=== PATIENT | female | born 1995 | race African-American/Black ===

== ENCOUNTER 2020-10-24 16:40 | Emergency (ER) | payer OTHER ==
[~2020-10-24] VITALS: Ht 160 cm; Wt 68.0 kg
[2020-10-24 18:50] LABS: BASOPHILS % 1.1 % (0.0-2.0); HEMATOCRIT. 40.7 % (36.0-48.0); LYMPHOCYTES % 47.7 % (20.0-50.0); MEAN CORPUSCULAR HEMOGLOBIN 34.4 pg (28.0-32.0); MEAN CORPUSCULAR VOLUME 99.8 fL (81.0-99.0); MEAN PLATELET VOLUME 9.2 fl (7.4-10.4); NEUTROPHILS % 41.2 % (40.0-76.0); PLATELET 178 x1000/uL (130-400); RED BLOOD CELL COUNT 4.08 mill/uL (4.2-5.4); RED CELL DISTRIBUTION WIDTH 13.1 % (11.6-14.6)
[2020-10-24 18:58] LABS: CHLORIDE 107 mEq/L (98-107)
[2020-10-24 19:04] LABS: ETHANOL BLOOD < 10 mg/dL
[2020-10-24 20:41] LABS: CLARITY URINE CLOUDY (CLEAR); COLOR URINE YELLOW (YELLOW); KETONES URINE 2+ (NEGATIVE); LEUKOCYTE ESTERASE URINE 1+ (NEGATIVE); NITRITE URINE NEGATIVE (NEGATIVE); OCCULT BLOOD URINE TRACE (NEGATIVE); PH URINE 6.5 (4.5-8.0); PROTEIN URINE NEGATIVE (NEGATIVE); SPECIFIC GRAVITY URINE 1.023 (1.005-1.030)
[2020-10-24 20:54] LABS: *AMPHETAMINES SCREEN URINE NEGATIVE (NEGATIVE); *BENZODIAZEPINES SCREEN URINE NEGATIVE (NEGATIVE); *COCAINE SCREEN URINE NEGATIVE (NEGATIVE); METHADONE URINE SCREEN NEGATIVE (NEGATIVE); OPIATES URINE SCREEN NEGATIVE (NEGATIVE); PHENCYCLIDINE URINE SCREEN NEGATIVE (NEGATIVE)
[2020-10-24 20:56] LABS: *BARBITURATES SCREEN URINE NEGATIVE (NEGATIVE)
[2020-10-24 20:58] LABS: CANNABINOID URINE SCREEN PRESUMTIVE POSITIVE (NEGATIVE)
[2020-10-24] MEDS ORDERED: ABIL5 MT (21:17)
[2020-10-24] MEDS ORDERED: ARIP2TAB3 MT (21:17)
[2020-10-24] MEDS ORDERED: MIRTAZAPINE 30MG TABLET PO SCH (22:00)
[2020-10-24] MEDS ORDERED: MIRTAZAPINE 15MG TABLET PO SCH (22:00)
[2020-10-24 22:30] VITALS: BP 123/77
== END 2020-10-24 22:30 | disposition home or self-care (01) ==
LOC: ER 16:47
DX: R45.851 Suicidal ideations (principal); J45.909 Unspecified asthma, uncomplicated; Z86.59 Personal history of other mental and behavioral disorders
CPT/HCPCS: 36415; 80053; 80305; 80307; 80320; 80329; 81003; 85025; 99283; G0480

== ENCOUNTER 2024-09-07 03:03 | Emergency (ER) | payer MEDICAID, OTHER ==
[~2024-09-07] VITALS: Ht 165.1 cm; Wt 63.0 kg
[~2024-09-07 03:03] MED LIST: ABIL5 MT; ARIP2TAB3 MT
[2024-09-07 03:05] VITALS: O2SAT 100
[2024-09-07 04:18] LABS: BASOPHILS % 1.4 % (0.0-2.0); EOSINOPHILS % 1.4 % (0.0-5.0); HEMOGLOBIN. 13.6 g/dL (12.0-16.0); LYMPHOCYTES % 44.7 % (20.0-50.0); MEAN CORPUSCULAR HEMOGLOBIN 33.6 pg (28.0-32.0); MEAN CORPUSCULAR VOLUME 98.7 fL (81.0-99.0); MEAN PLATELET VOLUME 9.7 fl (7.4-10.4); MONOCYTES % 9.6 % (2.0-8.0); NEUTROPHILS % 42.9 % (40.0-76.0); PLATELET 233 x1000/uL (130-400); RED BLOOD CELL COUNT 4.05 mill/uL (4.2-5.4); RED CELL DISTRIBUTION WIDTH 13.7 % (11.6-14.6); WHITE BLOOD COUNT 5.3 x1000/uL (4.5-11.0)
[2024-09-07 04:28] LABS: CARBON DIOXIDE 26 mEq/L (21-32); CHLORIDE 109 mEq/L (98-107); POTASSIUM 3.8 mEq/L (3.5-5.1); SODIUM 143 mEq/L (136-145)
[2024-09-07 04:29] LABS: CALCIUM 9.9 mg/dL (8.7-10.4)
[2024-09-07 04:33] LABS: CREATININE 0.8 mg/dL (0.6-1.0)
[2024-09-07 04:34] LABS: ETHANOL BLOOD < 10 mg/dL (<10); GLUCOSE 95 mg/dL (70-105); UREA NITROGEN BLOOD 10 mg/dL (9-23)
[2024-09-07 04:36] LABS: ACETAMINOPHEN < 2 ug/mL (10-30)
[2024-09-07 04:58] LABS: HCG SCREEN NEGATIVE
[2024-09-07 06:55] VITALS: BP 114/84; PULSE 84; RESP 14; O2SAT 99
== END 2024-09-07 07:01 | disposition home or self-care (01) ==
LOC: ER 03:03
DX: F44.5 Conversion disorder with seizures or convulsions (principal); J45.909 Unspecified asthma, uncomplicated; F31.9 Bipolar disorder, unspecified; F20.9 Schizophrenia, unspecified; Z79.899 Other long term (current) drug therapy
CPT/HCPCS: 80048; 80307; 80329; 80320; 84703; 85025; 36415; 93005; 99284; Z7610; A4606; G0480